=== PATIENT | female | born 2000 | race Caucasian/White ===

== ENCOUNTER 2021-08-14 00:10 | Emergency (ER) | payer BC, OTHER ==
[~2021-08-14] VITALS: Ht 157.5 cm; Wt 63.5 kg
[2021-08-14 00:14] VITALS: BP 103/47
--- NOTE | 2021-08-14 00:19 | NUR ---
pt ambulated to bed #4
--- NOTE | 2021-08-14 00:20 | NUR ---
20 YO/F PRESENTS TO ED W C/O L SIDED CHEST PAIN 10/14 SHARP/SHOCK NON-RAD INT LASING A FEW SECONDS AT A TIME BEGINING X4 DAYS AGO. PT DENIES ANY FEVERS/CHILLS, N/V/D OR SOB. PT LAYING IN BED W HOB ELEVATED. BREATHING EVEN AND UNLABORED. WILL CONTINUE TO MONTIOR. PMH:ANEMIA ALLERGIES: DENIES
--- NOTE | 2021-08-14 00:44 | NUR ---
PT UNABLE TO PROVIDE URINE AT THIS TIME. PT PROVIDED W WATER.
[2021-08-14] MEDS ORDERED: PANTOPRAZOLE 40 MG TABEC PO ONE (00:45)
--- NOTE | 2021-08-14 00:46 | NUR ---
Dr. Garcia examining patient.
--- NOTE | 2021-08-14 00:59 | NUR ---
X-Ray at bedside.
[2021-08-14] MEDS ORDERED: PANT40EC PO (01:05)
[2021-08-14] MEDS: IBUPROFEN 800 MG TAB PO ONE (01:09)
--- NOTE | 2021-08-14 01:10 | NUR ---
PER ERMD TO CANCEL URINE PREG AND PROTONIX ADMIN, TO ONLY ADMIN MOTRIN.
[2021-08-14 01:19] VITALS: BP 103/47
--- NOTE | 2021-08-14 01:19 | NUR ---
Patient discharged with v/s stable. Written and verbal after care instructions given and explained. Patient alert, oriented and verbalized understanding of instructions. Ambulatory with steady gait. All questions addressed prior to discharge. ID band removed. Patient advised to follow up with PMD. Rx of PROTONIX given. Patient educated on indication of medication including possible reaction and side effects. Opportunity to ask questions provided and answered.
== END 2021-08-14 01:19 | disposition home or self-care (01) ==
LOC: MED 00:10
DX: R07.89 Other chest pain (principal); Z79.899 Other long term (current) drug therapy
CPT/HCPCS: 71045; 93005; 99283; Q0092

== ENCOUNTER 2022-12-24 09:55 | Emergency (ER) | payer BC, OTHER ==
[~2022-12-24] VITALS: Ht 160 cm; Wt 61.7 kg
[~2022-12-24 09:55] MED LIST: PANT40EC PO
[2022-12-24 10:02] VITALS: BP 130/78; PULSE 72; RESP 20; TEMP 98.3; O2SAT 98
[2022-12-24] MEDS ORDERED: FAMOTIDINE 20 MG TAB PO ONE (10:40)
[2022-12-24] MEDS ORDERED: ALUMINUM HYD/MAG/SIMETHICONE 30 ML UDC PO ONE (10:40)
[2022-12-24 11:08] LABS: BASOPHILS % (AUTO) 0.5 % (0.0-2.0); EOSINOPHILS # (AUTO) 0.2 K/uL (0-0.4); EOSINOPHILS % (AUTO) 2.8 % (0.0-4.0); HEMATOCRIT 35.2 % (36-48); HEMOGLOBIN 11.2 g/dL (12.0-16.0); LYMPHOCYTES # (AUTO) 1.6 K/uL (2.5-16.5); LYMPHOCYTES % (AUTO) 21.9 % (20.5-51.1); MEAN CORPUSCULAR HEMOGLOBIN 23 pg (27-31); MEAN CORPUSCULAR HGB CONC 32 g/dL (33-37); MEAN CORPUSCULAR VOLUME 73.9 fL (80-94); MONOCYTES # (AUTO) 0.5 K/uL (0.8-1.0); MONOCYTES % (AUTO) 6.5 % (1.7-9.3); NEUTROPHILS # (AUTO) 4.8 K/uL (1.8-7.7); NEUTROPHILS % (AUTO) 68.3 % (42.2-75.2); PLATELET COUNT (AUTO) 403 K/uL (140-450); RED BLOOD CELL COUNT(AUTO) 4.76 MIL/uL (4.20-5.40); RED CELL DISTRIBUTION WIDTH 16.8 % (11.6-13.7); WHITE BLOOD COUNT (AUTO) 7.1 K/uL (4.8-10.8)
[2022-12-24 11:24] LABS: ALBUMIN 3.8 g/dL (3.4-5.0); ANION GAP 6.4 (8-16); CALCIUM 7.9 mg/dL (8.5-10.1); CARBON DIOXIDE 30.1 mmol/L (21-32); CREATININE 0.7 mg/dL (0.6-1.3); POTASSIUM 4.5 mmol/L (3.5-5.1); TOTAL BILIRUBIN 0.2 mg/dL (0.0-1.0); TOTAL PROTEIN, SERUM 6.9 g/dL (6.4-8.2)
[2022-12-24] MEDS ORDERED: FAMO-92 PO (11:42)
[2022-12-24 12:27] LABS: BILIRUBIN,URINE NEGATIVE (NEGATIVE); BLOOD, URINE 1+ (NEGATIVE); COLOR,URINE YELLOW (YELLOW); LEUKOCYTE ESTERASE ,URINE NEGATIVE (NEGATIVE); NITRITE, URINE NEGATIVE (NEGATIVE); PROTEIN,URINE NEGATIVE (NEGATIVE); UGLUCOSE NEGATIVE (NEGATIVE); UROBILINOGEN,URINE 0.2 EU/dL (0.2 - 1)
[2022-12-24 12:37] LABS: APPEARANCE,URINE SLIGHTLY HAZY (CLEAR); RBC,URINE 0-5 /HPF (0-5); SQUAMOUS EPITHELIAL CELL,UR 4-10 (MOD) /LPF (0-3 (FEW)); WBC,URINE 0-5 /HPF (0-5)
[2022-12-24 12:39] LABS: BACTERIA,URINE OCCASSIONAL /HPF (None Seen)
== END 2022-12-24 11:46 | disposition home or self-care (01) ==
LOC: MED 09:55
DX: K29.70 Gastritis, unspecified, without bleeding (principal); Z79.899 Other long term (current) drug therapy
CPT/HCPCS: 36415; 80053; 81001; 81025; 83690; 85025; 99283

== ENCOUNTER 2023-07-03 22:36 | Emergency (ER) | payer BC, OTHER ==
[~2023-07-03] VITALS: Ht 160 cm; Wt 61.2 kg
[~2023-07-03 22:36] MED LIST changes: +FAMO-92 PO
[2023-07-03 22:46] VITALS: BP 115/67; PULSE 77; RESP 16; TEMP 97.3; O2SAT 99
[2023-07-04] MEDS ORDERED: IBUP-2213 PO (00:27)
[2023-07-04 00:44] VITALS: BP 115/67; PULSE 77; RESP 16; TEMP 97.3; O2SAT 99
== END 2023-07-04 00:44 | disposition home or self-care (01) ==
LOC: MED 22:36
DX: R07.89 Other chest pain (principal); F17.200 Nicotine dependence, unspecified, uncomplicated; Z79.899 Other long term (current) drug therapy
CPT/HCPCS: 93005; 99283